=== PATIENT | male | born 1995 | race Caucasian/White ===

== ENCOUNTER 2017-02-11 22:43 | Emergency (ER) | payer OTHER ==
[~2017-02-11] VITALS: Ht 185.4 cm; Wt 89.9 kg
[2017-02-11 23:11] LABS: DAU SCREEN DISCLAIMER
[2017-02-11 23:21] LABS: HEMOGLOBIN 17.2 g/dL (13.7-18.0); WHITE BLOOD COUNT 11.1 x10^3/uL (3.4-10)
[2017-02-11 23:30] LABS: ASPARTATE AMINO TRANSFERASE 22 U/L (15-37); BLOOD UREA NITROGEN 19 mg/dL (7-18)
[2017-02-11 23:32] LABS: ACETAMINOPHEN 28 mcg/mL (10-30)
[2017-02-13] MEDS ORDERED: LORazepam 1MG TABLET ONE (22:34)
[2017-02-13] MEDS ORDERED: LORazepam 1MG TABLET PO ONE (23:00)
[2017-02-14] MEDS ORDERED: LORazepam 1MG TABLET PO ONE (19:30)
[2017-02-14] MEDS ORDERED: LORazepam 1MG TABLET ONE (19:59)
[2017-02-14] MEDS ORDERED: DIPHENHYDRAMINE 50 MG CAPSULE ONE (23:50)
[2017-02-15] MEDS ORDERED: DIPHENHYDRAMINE 25 MG CAPSULE PO ONE
[2017-02-15 06:55] VITALS: BP 110/70
== END 2017-02-15 16:04 | disposition home or self-care (01) ==
LOC: ED 02-12 01:12 → EDIP 02-12 01:48 → UNDOADMOB 02-12 01:48 → ED 02-15 16:04
DX: T40.2X2A Poisoning by other opioids, intentional self-harm, initial encounter (principal); T39.1X2A Poisoning by 4-Aminophenol derivatives, intentional self-harm, initial encounter; R40.0 Somnolence; F41.9 Anxiety disorder, unspecified; F32.9 Major depressive disorder, single episode, unspecified; Y92.89 Other specified places as the place of occurrence of the external cause; F17.200 Nicotine dependence, unspecified, uncomplicated
CPT/HCPCS: 36415; 80053; 80307; 80329; 85025; 99285; Q0163; G0479; G0480

== ENCOUNTER 2020-09-15 17:26 | Emergency (ER) | payer OTHER ==
[~2020-09-15] VITALS: Ht 185.4 cm; Wt 81.4 kg
[2020-09-15 19:44] LABS: BASOPHILS % (AUTO) 1 % (0-1); EOSINOPHILS % (AUTO) 5 % (1-7); LYMPHOCYTES % (AUTO) 29 % (22-44); MEAN CORPUSCULAR HEMOGLOBIN 29.4 pg (27.5-34.5); MEAN CORPUSCULAR HGB CONC 32.9 g/dL (33.2-36.2); MEAN PLATELET VOLUME 8.6 fL (7.4-10.4); MONOCYTES % (AUTO) 9 % (2-9); NEUTROPHILS % (AUTO) 58 % (42-75); PLATELET COUNT 211 x10^3/uL (130-400); RED BLOOD COUNT 5.62 x10^6/uL (4.38-5.82); RED CELL DISTRIBUTION WIDTH 13.5 % (9.4-14.8)
[2020-09-15 19:53] LABS: ALBUMIN 3.8 g/dL (3.4-5.0); ANION GAP 3 mmol/L (5-15); CALCIUM 9.1 mg/dL (8.5-10.1); CHLORIDE 110 mmol/L (98-107)
[2020-09-15 19:57] LABS: ALANINE AMINOTRANSFERASE 25 U/L (12-78); ALKALINE PHOSPHATASE 71 U/L (45-117); BILIRUBIN,TOTAL 0.7 mg/dL (0.2-1.0); TOTAL PROTEIN 7.1 g/dL (6.4-8.2)
--- NOTE | 2020-09-15 21:18 | NUR ---
TASK RN: PT. AMBULATORY TO ROOM FROM TRIAGE AT THIS TIME. PT. STATES HE HAS HAD ABD PAIN/CRAMPING ESPECIALLY AFTER MEALS X 3 DAYS. PT. SEEN AT AND PROVIDED WITH [employer]; PT. DRANK THE MAG CITRATE AND THEN STARTED HAVING DIARRHEA. PT. WENT BACK TO AND THEY SENT PT. TO ED.
--- NOTE | 2020-09-15 21:23 | NUR ---
REQUESTED PT. TO PROVIDE URINE SAMPLE. PT. STATES UNABLE TO VOID AT THIS TIME HE USED THE BR PRIOR TO COMING BACK TO ROOM.
[2020-09-15] MEDS ORDERED: OMEPRAZOLE 20 MG CAPSULE.DR PO ONE (22:00)
[2020-09-15] MEDS ORDERED: MAALOX/HYOSCYAMINE/LIDOCAINE 45 ML BTL PO ONE (22:00)
[2020-09-15] MEDS ORDERED: OMEPRAZOLE 20 MG CAPSULE.DR ONE (22:04)
[2020-09-15] MEDS ORDERED: MAALOX/HYOSCYAMINE/LIDOCAINE 45 ML BTL ONE (22:04)
[2020-09-15 22:42] VITALS: BP 114/53
== END 2020-09-15 22:48 | disposition home or self-care (01) ==
LOC: ED 21:21
DX: K29.00 Acute gastritis without bleeding (principal); F17.210 Nicotine dependence, cigarettes, uncomplicated
CPT/HCPCS: 36415; 76700; 80053; 83690; 85025; 99284; 99406